=== PATIENT | male | born 1995 | race Native Hawaiian/Other Pacific Islander ===

== ENCOUNTER 2016-09-14 21:34 | Emergency (ER) | payer SELFPAY ==
[2016-09-14] MEDS ORDERED: PEPCID IV ONE (21:58)
[2016-09-14] MEDS ORDERED: BENADRYL IV ONE (21:59)
[2016-09-15 01:20] VITALS: BP 105/50
--- NOTE | 2016-09-15 02:30 | Emergency Department Report ---
ED Allergic Reaction HPI - General Chief complaint: Allergic Reaction Stated complaint: BEE STING Time Seen by Provider: 09/15/16 02:29 Source: patient, family Mode of arrival: Ambulatory Limitations: No Limitations - History of Present Illness Initial Comments: Patient reports that the patient for evaluation of bee sting to his right thigh and these develop and hives on his left chest wall. Patient states that primary care doctor treated him for allergic reaction to bee sting last year and he had rash and earache compromise. He said that the PCP for appendectomy. He care with [facility] never got it filled. He said bee sting occurred 30 minutes prior to coming to the emergency room. Denies any difficulty breathing, swollen left eye, lips, wheezing and cough. He reports swelling and redness to his right thigh and chest area. Denies any pain. Patient was given Benadryl, Pepcid and Solu-Medrol and and came back toED room in stable condition. MD Complaint: allergic reaction, hives -: During the night Exposure: insect bite Symptoms: rash. denies: itching, facial swelling, lip swelling, difficulty swallowing, difficulty breathing, orolingual swelling, hoarseness, syncopy, dizziness, nausea, vomiting, abdominal pain Severity: mild Treatment Prior to Arrival: benadryl Previous Allergy History: anaphylaxis - Related Data Previous Rx's Medication Instructions Recorded Last Taken Type EPINEPHrine (NF) [Epipen (Nf)] 0.3 mg IM ONCE PRN #1 syringekit 09/15/16 Unknown Rx diphenhydrAMINE [Benadryl CAP] 50 mg PO Q8HR PRN #9 capsule 09/15/16 Unknown Rx methylPREDNISolone [Medrol] 4 mg PO QAM #1 tab.ds.pk 09/15/16 Unknown Rx Allergies Allergy/AdvReac Type Severity Reaction Status Date / Time No Known Allergies Allergy Unverified 09/14/16 21:50 ED Review of Systems ROS: Stated complaint: BEE STING Other details as noted in HPI Comment: All other systems reviewed and negative Constitutional: denies: chills, fever Eyes: denies: vision change ENT: denies: ear pain, throat pain, congestion Respiratory: no symptoms reported Cardiovascular: denies: chest pain, palpitations, edema, syncope Gastrointestinal: denies: abdominal pain, nausea, vomiting, diarrhea Musculoskeletal: denies: back pain, joint swelling, arthralgia, myalgia Skin: rash, pruritus. denies: change in color, change in hair/nails, other Neurological: denies: headache, weakness, numbness, paresthesias, confusion, abnormal gait, vertigo ED Past Medical Hx - Past Medical History Previous Medical History?: No - Surgical History Past Surgical History?: No - Family History Family history: no significant - Social History Smoking Status: Former Smoker Substance Use Type: Alcohol - Medications Home Medications: Home Medications Medication Instructions Recorded Confirmed Last Taken Type EPINEPHrine (NF) [Epipen (Nf)] 0.3 mg IM ONCE PRN #1 syringekit 09/15/16 Unknown Rx diphenhydrAMINE [Benadryl CAP] 50 mg PO Q8HR PRN #9 capsule 09/15/16 Unknown Rx methylPREDNISolone [Medrol] 4 mg PO QAM #1 tab.ds.pk 09/15/16 Unknown Rx ED Physical Exam - General Limitations: No Limitations General appearance: alert, in no apparent distress - Head Head exam: Present: atraumatic, normocephalic, normal inspection - Eye Eye exam: Present: normal appearance, PERRL, EOMI. Absent: periorbital swelling , periorbital tenderness Pupils: Present: normal accommodation - ENT ENT exam: Present: normal exam, normal orophraynx, mucous membranes moist, TM's normal bilaterally, normal external ear exam - Expanded ENT Exam Expanded Ear exam: Present: normal external inspection Mouth exam: Present: normal external inspection. Absent: drooling, trismus, muffled voice, tongue normal, tongue elevation, laceration Teeth exam: Present: normal inspection Throat exam: Positive: normal inspection, other (uvula is midline and oral airways patent). Negative: tonsillar erythema, tonsillomegaly, tonsillar exudate, R peritonsillar mass, L peritonsillar mass - Neck Neck exam: Present: normal inspection, full ROM. Absent: tenderness, meningismus, lymphadenopathy - Expanded Neck Exam Expanded Neck exam: Absent: tenderness, midline deformity, anterior neck swelling, tracheal deviation - Respiratory Respiratory exam: Present: normal lung sounds bilaterally. Absent: respiratory distress, wheezes, rales, rhonchi, stridor, chest wall tenderness, accessory muscle use, decreased breath sounds, prolonged expiratory - Cardiovascular Cardiovascular Exam: Present: regular rate, normal rhythm, normal heart sounds - GI/Abdominal GI/Abdominal exam: Present: soft, normal bowel sounds. Absent: distended, tenderness, guarding, rebound, rigid - Extremities Exam Extremities exam: Present: normal inspection, full ROM, normal capillary refill. Absent: tenderness, pedal edema, joint swelling, calf tenderness - Back Exam Back exam: Present: normal inspection, full ROM - Neurological Exam Neurological exam: Present: alert, oriented X3, normal gait, reflexes normal. Absent: motor sensory deficit - Psychiatric Psychiatric exam: Present: normal affect, normal mood - Skin Skin exam: Present: warm, dry, intact, erythema, urticaria - Expanded Skin Exam Expanded Type of lesion: Present: rash, bite/sting Distribution of rash: chest (sparsely scattered rash to chest), RLE (inner distal thigh) Description of rash: Present: erythematous, swelling, urticarial. Absent: tenderness ED Course Vital Signs 09/14/16 09/15/16 21:42 01:19 Temperature 98.2 F 98.2 F Pulse Rate 71 74 Respiratory 18 18 Rate Blood Pressure 115/75 105/50 Blood Pressure 115/75 [Right] O2 Sat by Pulse 100 100 Oximetry - Reevaluation(s) Reevaluation #1: 09/15/16 02:30 Patient status post bee sting and was given Pepcid 20 mg IV, Benadryl 50 mg IV and Solu-Medrol 125 mg IV. An rash to subside in and patient without any angioedema or respiratory difficulties. Since being monitored and reassessed. Currently sounds are clear without any wheezes or stridor, spleen can't and uvula is midline, no tongue swelling or trismus noted. Reevaluation #2: 09/15/16 03:26 She remained stable without any progression of allergic reaction. ED Medical Decision Making - Medical Decision Making ED course: Rash subsided and after the patient received Benadryl 50 mg IV, Solu- Medrol 125 mg IV and Pepcid 20 mg IV and triage area. She arrives in emergency room after medication given and no extension of rash and appears to be clearing. He has no anaphylactic episode from sleeping. Medication was given at 22:09 PM and patient remains asymptomatic without any respiratory symptoms. I explained to patient that I will discharge him home on Benadryl and Medrol Dosepak. I also explained to him that I will give him prescription for EpiPen and he will need to fill it because if he gets stung by a bee he can go into respiratory distress. Critical care attestation.: If time is entered above; I have spent that time in minutes in the direct care of this critically ill patient, excluding procedure time. ED Disposition Clinical Impression: Bee sting allergy, Localized hives Disposition: DC-01 TO HOME OR SELFCARE Is pt being admited?: No Does the pt Need Aspirin: No Condition: Stable Instructions: Insect Bite or Sting (ED), Urticaria (ED) Additional Instructions: Get prescription for EpiPen filled. Take medication as prescribed. Benadryl can make you drowsy. Do not drive or operate heavy machinery while taking this medication. Please return to the emergency room if he develops symptoms of coughing, scratchy throat, swallowing of throat, tingling in the lips, difficulty breathing, wheezing or stridor. Prescriptions: diphenhydrAMINE [Benadryl CAP] 50 mg PO Q8HR PRN #9 capsule PRN Reason: Allergic Reaction EPINEPHrine (NF) [Epipen (Nf)] 0.3 mg IM ONCE PRN #1 syringekit PRN Reason: Allergic Reaction methylPREDNISolone [Medrol] 4 mg PO QAM #1 tab.ds.pk Referrals: ISRAEL FLORES MD [Primary Care Provider] - 09/15/16 Forms: Accompanied Note, Work/School Release Form(ED)
== END 2016-09-15 03:55 | disposition home or self-care (01) ==
LOC: ED 21:34
DX: S70.361A Insect bite (nonvenomous), right thigh, initial encounter (principal); L50.9 Urticaria, unspecified; Z87.891 Personal history of nicotine dependence; W57.XXXA Bitten or stung by nonvenomous insect and other nonvenomous arthropods, initial encounter; Y93.9 Activity, unspecified; Y92.9 Unspecified place or not applicable; Y99.9 Unspecified external cause status
CPT/HCPCS: 96374; 96375; 99282; J1200; J2930

== ENCOUNTER 2021-10-31 15:37 | Emergency (ER) | payer SELFPAY ==
--- NOTE | 2021-10-31 16:34 | Emergency Department Report ---
ED General Adult HPI - General Chief complaint: Psych Stated complaint: MENTAL EVAL Time Seen by Provider: 10/31/21 16:22 Source: patient, EMS ( EMS documentation not available at time of chart dictation ), RN notes reviewed Mode of arrival: Stretcher Limitations: No Limitations - History of Present Illness Initial comments: The patient was evaluated in the emergency department for symptoms described in the history of present illness. He/she was evaluated in the context of the global COVID-19 pandemic, which necessitated consideration that the patient might be at risk for infection with the virus that causes COVID-19. Institutional protocols and algorithms that pertain to the evaluation of patients at risk for COVID-19 are in a state of rapid change based on information released by regulatory bodies including the CDC and federal and state organizations. These policies and algorithms were followed during the patient's care in the emergency department. Please note that these policies, procedures and recommendations changed on a rapid basis. This is a 25-year-old gentleman who presents to the department today with a chief complaint of being hungry and nauseous. He denies physical pain. He denies homicidality and suicidality. As I interviewed the patient, he is eating food and a cookie. As per verbal report from nursing team, 911 was activated because the patient reportedly had somebody at home, and has been acting bizarrely for months. The patient himself denies homicidality, suicidality, hallucinations, overdose, access to guns and firearms. He is not accompanied by friends or family at this time for collateral information or additional information. Called up the listed phone number, nobody answered, left voicemail for call back. Patient otherwise denies acute medical complaints at this time Severity scale (0 -10): 0 - Related Data Previous Rx's Medication Instructions Recorded Last Taken Type EPINEPHrine (NF) [Epipen (Nf)] 0.3 mg IM ONCE PRN #1 syringekit 09/15/16 Unknown Rx diphenhydrAMINE [Benadryl CAP] 50 mg PO Q8HR PRN #9 capsule 09/15/16 Unknown Rx methylPREDNISolone [Medrol] 4 mg PO QAM #1 tab.ds.pk 09/15/16 Unknown Rx Allergies Allergy/AdvReac Type Severity Reaction Status Date / Time No Known Allergies Allergy Unverified 09/14/16 21:50 ED Review of Systems ROS: Stated complaint: MENTAL EVAL Other details as noted in HPI Comment: All other systems reviewed and negative Gastrointestinal: nausea ED Past Medical Hx - Past Medical History Previous Medical History?: No - Surgical History Past Surgical History?: No - Social History Smoking Status: Former Smoker Substance Use Type: Alcohol - Medications Home Medications: Home Medications Medication Instructions Recorded Confirmed Last Taken Type EPINEPHrine (NF) [Epipen (Nf)] 0.3 mg IM ONCE PRN #1 syringekit 09/15/16 Unknown Rx diphenhydrAMINE [Benadryl CAP] 50 mg PO Q8HR PRN #9 capsule 09/15/16 Unknown Rx methylPREDNISolone [Medrol] 4 mg PO QAM #1 tab.ds.pk 09/15/16 Unknown Rx ED Physical Exam - General Limitations: No Limitations General appearance: alert, in no apparent distress - Head Head exam: Present: atraumatic, normocephalic - Eye Eye exam: Present: normal appearance, EOMI. Absent: nystagmus - ENT ENT exam: Present: normal exam, normal orophraynx, mucous membranes moist, nor mal external ear exam - Neck Neck exam: Present: normal inspection, full ROM. Absent: tenderness, meningismus - Respiratory Respiratory exam: Present: normal lung sounds bilaterally. Absent: respiratory distress, wheezes, rales, rhonchi, stridor, decreased breath sounds - Cardiovascular Cardiovascular Exam: Present: regular rate, normal rhythm, normal heart sounds. Absent: bradycardia, tachycardia, irregular rhythm, systolic murmur, diastolic murmur, rubs, gallop - GI/Abdominal GI/Abdominal exam: Present: soft. Absent: distended, tenderness, guarding, rebound, rigid, pulsatile mass - Rectal Rectal exam: Present: deferred - Extremities Exam Extremities exam: Present: normal inspection, full ROM, other (2+ pulses noted in the bilateral upper and lower extremities. There is no palpable cord. negative Homans sign. Muscular compartments are soft. The pelvis is stable.). Absent: pedal edema, calf tenderness - Back Exam Back exam: Present: normal inspection, full ROM. Absent: CVA tenderness (R), CVA tenderness (L), paraspinal tenderness, vertebral tenderness - Neurological Exam Neurological exam: Present: alert, oriented X3, normal gait, other (No facial droop. Tongue midline. Extraocular movements intact bilaterally. Facial sensation intact to light touch in V1, V2, V3 distribution bilaterally. 5 and a 5 strength in 4 extremities. Sensation intact to light touch in 4 extremities.). Absent: motor sensory deficit - Psychiatric Psychiatric exam: Absent: manic, homicidal ideation, suicidal ideation - Skin Skin exam: Present: warm, dry, intact, normal color. Absent: rash ED Course Vital Signs 10/31/21 10/31/21 15:44 18:45 Temperature 98.0 F Pulse Rate 105 H Respiratory 16 Rate Blood Pressure 158/82 [Left] O2 Sat by Pulse 99 99 Oximetry - Reevaluation(s) Reevaluation #1: 10/31/21 16:34 Differential diagnosis, including but not limited to: Encounter for behavioral health screening examination, encounter for medical screening examination Assessment and plan: 25-year-old gentleman, with resolved tachycardia, who is afebrile, with reassuring vital signs, in no acute distress, eating food and a cookie, who is cooperative, ANO x3, not homicidal or suicidal. At this point in time, does not meet criteria for 1013 hold or involuntary confinement. He has not demonstrated any witnessed behavior here in the department that would be consistent with acute decompensated psychosis. Called up listed phone number to obtain collateral information, nobody answered, so left voicemail for call back. So far, nobody has called back. Have requested mental health evaluation. We will order typical laboratory studies in anticipation of mental health requests. Reassess after initial data points. Reevaluation #2: 10/31/21 17:59 Laboratory studies are reviewed and are unremarkable at this time. Awaiting mental health consultation and evaluation. Ultimate disposition as per mental health team. At this point in time, this patient does not appear to have an immediate medical contraindication to psychiatric admission, evaluation, consultation and placement. 10/31/21 19:02 The psychiatric team have recommended 1013 for the following reason Initiate 1013 as pt is responding to internal stimuli, reporting command AH to harm self and his mother. Patient has had his 1013 filled out by myself. Holding orders initiated. COVID swab ordered in anticipation of psychiatric placement. As needed medications are ordered. Patient remained suitable at this time for psychiatric placement, consultation and disposition. He does not appear to have an emergent medical condition present at this time. ED Medical Decision Making - Lab Data Result diagrams: 10/31/21 16:58 10/31/21 16:58 Vital Signs 10/31/21 15:44 Temperature 98.0 F Pulse Rate 105 H Respiratory 16 Rate Blood Pressure 158/82 [Left] O2 Sat by Pulse 99 Oximetry Lab Results 10/31/21 10/31/21 10/31/21 Range/Units 16:58 16:58 16:58 WBC 7.7 (4.5-11.0) K/mm3 RBC 5.33 H (3.65-5.03) M/mm3 Hgb 16.3 H (11.8-15.2) gm/dl Hct 49.7 H (35.5-45.6) % MCV 93 (84-94) fl MCH 31 (28-32) pg MCHC 33 (32-34) % RDW 13.2 (13.2-15.2) % Plt Count 178 (140-440) K/mm3 Sodium 139 (137-145) mmol/L Potassium 4.4 (3.6-5.0) mmol/L Chloride 100.1 (98-107) mmol/L Carbon Dioxide 27 (22-30) mmol/L Anion Gap 16 mmol/L BUN 9 (9-20) mg/dL Creatinine 0.8 (0.8-1.3) mg/dL Estimated GFR > 60 ml/min BUN/Creatinine Ratio 11 % Glucose 133 H (75-100) mg/dL Calcium 10.0 (8.4-10.2) mg/dL Salicylates < 0.3 L (2.8-20.0) mg/dL Acetaminophen (10.0-30.0) ug/mL 10/31/21 Range/Units 16:58 WBC (4.5-11.0) K/mm3 RBC (3.65-5.03) M/mm3 Hgb (11.8-15.2) gm/dl Hct (35.5-45.6) % MCV (84-94) fl MCH (28-32) pg MCHC (32-34) % RDW (13.2-15.2) % Plt Count (140-440) K/mm3 Sodium (137-145) mmol/L Potassium (3.6-5.0) mmol/L Chloride (98-107) mmol/L Carbon Dioxide (22-30) mmol/L Anion Gap mmol/L BUN (9-20) mg/dL Creatinine (0.8-1.3) mg/dL Estimated GFR ml/min BUN/Creatinine Ratio % Glucose (75-100) mg/dL Calcium (8.4-10.2) mg/dL Salicylates (2.8-20.0) mg/dL Acetaminophen 5.0 L (10.0-30.0) ug/mL Critical care attestation.: If time is entered above; I have spent that time in minutes in the direct care of this critically ill patient, excluding procedure time. ED Disposition Clinical Impression: Encounter for behavioral health screening, Encounter for medical screening examination Disposition: [address] [place] [address] Is pt being admited?: No Does the pt Need Aspirin: No Condition: Good
[2021-10-31 17:33] LABS: Hematocrit 49.7 % (35.5-45.6); Hemoglobin 16.3 gm/dl (11.8-15.2); Mean Corpuscular HGB Conc 33 % (32-34); Mean Corpuscular Volume 93 fl (84-94); Platelet Count 178 K/mm3 (140-440); Red Blood Count 5.33 M/mm3 (3.65-5.03); Red Cell Distribution Width 13.2 % (13.2-15.2)
[2021-10-31 17:44] LABS: BUN/Creatinine Ratio 11; Blood Urea Nitrogen 9 mg/dL (9-20); Hemolysis Index 13
[2021-10-31 18:03] LABS: Bacteria,Urine 1+ /HPF (Negative); Mucus,Urine FEW /HPF
[2021-10-31 18:19] LABS: Amphetamine Screen,Urine PRESUMPTIVE NEGATIVE; Benzodiazepines Screen,Urine PRESUMPTIVE NEGATIVE; Cannabinoid Screen,Urine PRESUMPTIVE NEGATIVE; Cocaine Screen,Urine PRESUMPTIVE NEGATIVE; Methadone Screen,Urine PRESUMPTIVE NEGATIVE; Opiate Screen,Urine PRESUMPTIVE NEGATIVE
[2021-10-31 18:38] LABS: Color,Urine Straw (Yellow)
[2021-10-31 18:39] LABS: Bilirubin,Urine Negative (Negative); Blood,Urine Negative (Negative); PH,Urine 6.5 (5.0-7.0); Protein,Urine <15 mg/dL mg/dL (Negative); Urobilinogen,Urine < 2.0 mg/dL (<2.0)
[2021-10-31] MEDS ORDERED: HALOPERIDOL LACTATE 5 MG/1 ML INJ IM PRN (19:02)
[2021-10-31] MEDS ORDERED: LORazepam 2 MG/ML VIAL IM PRN (19:02)
--- NOTE | 2021-11-01 10:39 | Consultation ---
History of Present Illness - Reason for Consult Consult date: 11/01/21 Reason for consult: disorganized - History of Present Psychiatric Illness The patient was seen today. His thoughts are disorganized and illogical. He appears distracted. His speech is tangential. He is difficulty to follow. I'm having to ask him the same questions several times and pull him back to the subject. The patient states he came to the hospital because he's had amnesia for three days. He says "all my thoughts have left my mind." However, the patient is a/o x 3. He says "I felt myself inside of myself." The patient starts talking about living in a place where people are impulsive. He says some chao who is dating his sister "keeps taking me out of my room to his room because he's trying to be goldberg." He says "I'm not sure what's going on but I keep ending up in his room." He says "there are people in my head that I keep talking to." He denies SI/HI. Will treat and recommend inpatient psych treatment to stabilize the patient on medication, PAST PSYCHIATRIC HISTORY: Unable to obtain PAST MEDICAL HISTORY: Unable to obtain SOCIAL HISTORY Unable to obtain REVIEW OF SYSTEMS Constitutional: Negative for weight loss ENT: Negative for stridor Respiratory: Negative for cough or hemoptysis All other systems reviewed and are negative MENTAL STATUS General Appearance and Behavior: age appropriate, good eye contact, cooperative with questioning and polite Cooperation: Cooperative Psychomotor Behavior: within normal limits Mood: not good Affect and affective range: Congruent with stated mood Thought Process: disorganized, illogical Thought Content: delusions, hallucinations Speech: tangential, nonsensical Suicidal Ideation: Denies SI Homicidal Ideation: Denies HI Hallucinations: Auditory Delusions: Yes Impulse Control: Poor Insight and Judgment: Poor Memory: poor Attention: Distracted Orientation: alert and oriented Assessment: Delusional Disorder Treatment Plan 1013 Olanzapine 5mg po daily Doxepin 10mg po qhs MEDICAL: Per primary team DELIRIUM PRECAUTIONS: Please re-orient patient frequently, keep lights on during the day, and minimize benzodiazepines and opiates as these medications could worsen patient's confusion. [employer]PER[employer]OR [employer] ROOM: Defer to primary team DISPOSITION: Recommend acute psychiatric inpatient treatment FOLLOW-UP: will follow. Thanks Case staffed with Dr. Gould Medications and Allergies Allergies Allergy/AdvReac Type Severity Reaction Status Date / Time No Known Allergies Allergy Unverified 09/14/16 21:50 Home Medications Medication Instructions Recorded Confirmed Last Taken Type EPINEPHrine (NF) [Epipen (Nf)] 0.3 mg IM ONCE PRN #1 syringekit 09/15/16 Unknown Rx diphenhydrAMINE [Benadryl CAP] 50 mg PO Q8HR PRN #9 capsule 09/15/16 Unknown Rx methylPREDNISolone [Medrol] 4 mg PO QAM #1 tab.ds.pk 09/15/16 Unknown Rx Active Meds: Active Medications Haloperidol Lactate (Haloperidol Lactate 5 Mg/1 Ml Inj) 5 mg IM Q6HR PRN PRN Reason: Agitation Lorazepam (Lorazepam 2 Mg/Ml Vial) 2 mg IM Q4HR PRN PRN Reason: Agitation Mental Status Exam - Vital signs Last Vital Signs Temp 98.3 F 10/31/21 20:26 Pulse 78 10/31/21 20:26 Resp 18 10/31/21 20:26 BP 137/85 10/31/21 20:26 Pulse Ox 99 10/31/21 20:26 Results Result Diagrams: 10/31/21 16:58 10/31/21 16:58 Abnormal lab results 10/31/21 10/31/21 10/31/21 Range/Units 16:58 16:58 16:58 RBC 5.33 H (3.65-5.03) M/mm3 Hgb 16.3 H (11.8-15.2) gm/dl Hct 49.7 H (35.5-45.6) % Glucose 133 H (75-100) mg/dL Salicylates < 0.3 L (2.8-20.0) mg/dL Acetaminophen (10.0-30.0) ug/mL 10/31/21 Range/Units 16:58 RBC (3.65-5.03) M/mm3 Hgb (11.8-15.2) gm/dl Hct (35.5-45.6) % Glucose (75-100) mg/dL Salicylates (2.8-20.0) mg/dL Acetaminophen 5.0 L (10.0-30.0) ug/mL All other labs normal.
--- NOTE | 2021-11-01 16:42 | Event Note ---
Date: 11/01/21 The patient was evaluated in the emergency department for symptoms described in the history of present illness. He/she was evaluated in the context of the global COVID-19 pandemic, which necessitated consideration that the patient might be at risk for infection with the virus that causes COVID-19. Institutional protocols and algorithms that pertain to the evaluation of patients at risk for COVID-19 are in a state of rapid change based on information released by regulatory bodies including the CDC and federal and state organizations. These policies and algorithms were followed during the patient's care in the emergency department. Please note that these policies, procedures and recommendations changed on a rapid basis. Laboratory studies, vital signs, nursing documentation, ER documentation, and psychiatric documentation are reviewed and appreciated. Nursing team reports no acute events this morning or concerns. The patient is awake and not in any acute distress. The patient was deemed medically suitable for psychiatric disposition and placement during his initial ER evaluation. The patient continues to remain medically suitable for psychiatric placement and disposition. He is currently pending psychiatric placement. Vital Signs 10/31/21 10/31/21 10/31/21 15:44 18:45 20:26 Temperature 98.0 F 98.3 F Pulse Rate 105 H 78 Respiratory 16 18 Rate Blood Pressure 158/82 137/85 [Left] O2 Sat by Pulse 99 99 99 Oximetry 11/01/21 12:05 Temperature 98.8 F Pulse Rate 80 Respiratory 17 Rate Blood Pressure 135/84 [Left] O2 Sat by Pulse 100 Oximetry
[2021-11-01] MEDS ORDERED: DOXEPIN 10 MG CAP PO SCH (22:00)
--- NOTE | 2021-11-02 11:22 | Event Note ---
Date: 11/02/21 vss, no distress , no events overnight , seen by psych recommend acute psych admission
[2021-11-02 11:42] VITALS: BP 131/90
== END 2021-11-02 11:41 ==
LOC: ED 15:37
DX: Z04.6 Encounter for general psychiatric examination, requested by authority (principal); Z13.30 Encounter for screening examination for mental health and behavioral disorders, unspecified; Z20.822 Contact with and (suspected) exposure to COVID-19; Z87.891 Personal history of nicotine dependence; Z72.89 Other problems related to lifestyle; Z79.899 Other long term (current) drug therapy
CPT/HCPCS: 36415; 80048; 80307; 81001; 84443; 85027; 99285; U0003; 80320; G0480